=== PATIENT | female | born 1930 | race Caucasian/White ===

== ENCOUNTER → 2016-09-25 | Outpatient (CLI) | payer MEDICARE ==
[~2016-09-25] MED LIST: ASPI-231 PO; BACL20TA PO; GABA300C8 PO; HYDR500T13 PO; METO-159 PO; PANT40TA2 PO; SIMV-13 PO; [UNRECOGNIZED DRUG - CODE] SL
[2016-09-25 11:06] LABS: Basophils # (auto) 0 uL; Basophils % (auto) 0.6 % (0.0-2.0); Eosinophils # (auto) 0.1 uL; Eosinophils % (auto) 2.2 % (0.0-7.0); Hematocrit 41.6 % (36.0-46.0); Hemoglobin 13.6 g/dL (12.2-16.2); Lymphocytes # (auto) 2.5 uL; Lymphocytes % (auto) 41.7 % (10.0-50.0); Mean Corpuscular Hemoglobin 30.2 pg (28.0-32.0); Mean Corpuscular Hgb Conc. 32.6 g/dL (32.0-36.0); Mean Corpuscular Volume 92.7 fL (80.0-100.0); Mean Platelet Volume 7.8 fL (7.4-10.4); Monocytes # (auto) 0.4 uL; Monocytes % (auto) 5.9 % (0.0-12.0); Neutrophils % (auto) 49.6 % (37.0-80.0); Platelet Count (auto) 298 10^3/uL (140-450); Red Cell Distribution Width 15.9 % (11.6-16.0)
[2016-09-25 11:10] LABS: Urine Bilirubin Negative (Negative); Urine Blood Negative /uL (Negative); Urine Color Yellow (Yellow); Urine Glucose Normal (Normal); Urine Ketone Negative (Negative); Urine Nitrite Negative (Negative); Urine RBC 1 /hpf (0 - 4); Urine Urobilinogen Normal (Negative); Urine pH 6.5 (5.0-8.0)
[2016-09-25 11:27] LABS: Albumin 3.7 g/dL (3.4-5.0); BUN/Creatinine Ratio 20.6; Bilirubin, Total 1.2 mg/dL (0.2-1.0); Calcium 9.4 mg/dL (8.5-10.1); Total Protein 7.3 g/dL (6.4-8.2)
== END | disposition home or self-care (01) ==
LOC: LAB 10:31
DX: E08.3219 Diabetes mellitus due to underlying condition with mild nonproliferative diabetic retinopathy with macular edema, unspecified eye (principal)
CPT/HCPCS: 36415; 80053; 80061; 81001; 83036; 84443; 85025; 85652

== ENCOUNTER → 2017-01-03 | Outpatient (CLI) | payer MEDICARE ==
[2017-01-03 08:57] LABS: Basophils # (auto) 0 uL; Basophils % (auto) 0.2 % (0.0-2.0); Eosinophils # (auto) 0.1 uL; Eosinophils % (auto) 1.7 % (0.0-7.0); Hematocrit 42.2 % (36.0-46.0); Lymphocytes % (auto) 30.4 % (10.0-50.0); Mean Corpuscular Hemoglobin 30.5 pg (28.0-32.0); Mean Corpuscular Hgb Conc. 33.1 g/dL (32.0-36.0); Mean Corpuscular Volume 92.1 fL (80.0-100.0); Mean Platelet Volume 7.6 fL (7.4-10.4); Monocytes # (auto) 0.4 uL; Monocytes % (auto) 5.5 % (0.0-12.0); Neutrophils # (auto) 4.1 uL; Neutrophils % (auto) 62.2 % (37.0-80.0); Platelet Count (auto) 266 10^3/uL (140-450); Red Cell Distribution Width 14.3 % (11.6-16.0); White Blood Cell 6.5 10^3/uL (4.4-10.8)
[2017-01-03 09:11] LABS: Urine Bilirubin Negative (Negative); Urine Blood TRACE /uL (Negative); Urine Color Yellow (Yellow); Urine Glucose Normal (Normal); Urine Ketone Negative (Negative); Urine Nitrite Negative (Negative); Urine RBC 2 /hpf (0 - 4); Urine Squamous Epithelial Cell FEW /hpf (<5); Urine Urobilinogen Normal (Negative); Urine pH 6.5 (5.0-8.0)
[2017-01-03 09:26] LABS: Albumin 3.6 g/dL (3.4-5.0); BUN/Creatinine Ratio 22.9; Bilirubin, Total 1.1 mg/dL (0.2-1.0); Calcium 9.7 mg/dL (8.5-10.1); Potassium 4.1 mmol/L (3.5-5.1); Total Protein 7.5 g/dL (6.4-8.2)
== END | disposition home or self-care (01) ==
LOC: LAB 08:30
DX: E08.21 Diabetes mellitus due to underlying condition with diabetic nephropathy (principal); E11.22 Type 2 diabetes mellitus with diabetic chronic kidney disease; Z80.3 Family history of malignant neoplasm of breast; I10 Essential (primary) hypertension; L98.9 Disorder of the skin and subcutaneous tissue, unspecified
CPT/HCPCS: 36415; 80053; 80061; 81001; 82043; 83036; 84443; 85025

== ENCOUNTER → 2018-06-16 | Outpatient (CLI) | payer MEDICARE ==
[~2018-06-16] MED LIST changes: +GABA300C10 PO; -GABA300C8 PO
[2018-06-16 09:16] LABS: Basophils # (auto) 0 uL; Basophils % (auto) 0.3 % (0.0-2.0); Eosinophils # (auto) 0.2 uL; Eosinophils % (auto) 2.9 % (0.0-7.0); Hemoglobin 13.7 g/dL (12.2-16.2); Lymphocytes # (auto) 2.1 uL; Lymphocytes % (auto) 31.7 % (10.0-50.0); Mean Corpuscular Hemoglobin 31.6 pg (28.0-32.0); Mean Corpuscular Hgb Conc. 33.5 g/dL (32.0-36.0); Mean Corpuscular Volume 94.2 fL (80.0-100.0); Monocytes # (auto) 0.5 uL; Neutrophils # (auto) 3.8 uL; Neutrophils % (auto) 58.1 % (37.0-80.0); Platelet Count (auto) 249 10^3/uL (140-450); Red Blood Cells 4.35 10^6/uL (4.0-5.20); Red Cell Distribution Width 14.1 % (11.8-14.3); White Blood Cell 6.5 10^3/uL (4.4-10.8)
[2018-06-16 09:18] LABS: Urine Blood Negative /uL (Negative); Urine Specific Gravity 1.017 (1.001-1.035)
[2018-06-16 10:09] LABS: Albumin 4.3 g/dL (3.4-5.0); BUN/Creatinine Ratio 29.5; Bilirubin, Total 0.8 mg/dL (0.2-1.0); Calcium 9.9 mg/dL (8.5-10.1); Potassium 4.1 mmol/L (3.5-5.1); Total Protein 8.1 g/dL (6.4-8.2)
== END | disposition home or self-care (01) ==
LOC: LAB 08:33
PROVIDERS: ATTEND Nurse Practitioner
DX: E78.5 Hyperlipidemia, unspecified (principal)
CPT/HCPCS: 36415; 80053; 80061; 81003; 84443; 85025

== ENCOUNTER → 2019-06-16 | Outpatient (CLI) | payer MEDICARE, OTHER | END | disposition home or self-care (01) | LOC: XYW 10:47 | PROVIDERS: ATTEND Internal Medicine | DX: I07.1 Rheumatic tricuspid insufficiency (principal); I48.91 Unspecified atrial fibrillation; I11.9 Hypertensive heart disease without heart failure | CPT/HCPCS: 93306 ==

== ENCOUNTER → 2019-12-02 | Outpatient (CLI) | payer MEDICARE, OTHER ==
[2019-12-02 15:33] LABS: Basophils # (auto) 0 10 ^3/uL (0-0.2); Basophils % (auto) 0.3 % (0.0-2.0); Eosinophils # (auto) 0.1 10 ^3/uL (0-0.8); Eosinophils % (auto) 1.2 % (0.0-7.0); Hematocrit 41.6 % (36.0-46.0); Hemoglobin 13.8 g/dL (12.2-16.2); Lymphocytes # (auto) 2.1 10 ^3/uL (0.4-5.4); Lymphocytes % (auto) 38.5 % (10.0-50.0); Mean Corpuscular Hemoglobin 31.8 pg (28.0-32.0); Mean Corpuscular Hgb Conc. 33.3 g/dL (32.0-36.0); Mean Corpuscular Volume 95.6 fL (80.0-100.0); Monocytes # (auto) 0.4 10 ^3/uL (0-1.3); Monocytes % (auto) 7.9 % (0.0-12.0); Neutrophils # (auto) 2.9 10 ^3/uL (1.6-8.6); Neutrophils % (auto) 52.1 % (37.0-80.0); Nucleated Red Blood Cells % 0.1 %; Platelet Count (auto) 279 10^3/uL (140-450); Red Blood Cells 4.35 10^6/uL (4.0-5.20); White Blood Cell 5.5 10^3/uL (4.4-10.8)
[2019-12-02 15:52] LABS: Albumin 3.2 g/dL (3.4-5.0); BUN/Creatinine Ratio 31.5; Calcium 9.3 mg/dL (8.5-10.1); Potassium 4.4 mmol/L (3.5-5.1)
[2019-12-02 15:56] LABS: Bilirubin, Total 0.5 mg/dL (0.2-1.0); Total Protein 7.1 g/dL (6.4-8.2)
[2019-12-02 16:01] LABS: Folate (Folic Acid) > 24.00 ng/mL (5.38-24)
== END | disposition home or self-care (01) ==
LOC: LAB 14:57
PROVIDERS: ATTEND Internal Medicine
DX: I10 Essential (primary) hypertension (principal); I48.91 Unspecified atrial fibrillation; M51.36 Other intervertebral disc degeneration, lumbar region
CPT/HCPCS: 36415; 80053; 80061; 82607; 82746; 83036; 84443; 85025

== ENCOUNTER 2020-02-24 16:00 | Inpatient (IN) | payer MEDICARE, OTHER ==
[~2020-02-24] VITALS: Ht 152.4 cm; Wt 71.6 kg
[2020-02-24 17:16] VITALS: BP 125/56
--- NOTE | 2020-02-24 17:20 | NUR ---
Direct Admit Note JUDY KING admitted to Telemetry/MS unit as a direct admit per MD order. Patient oriented to Inez ahmadi RN, unit, room, bed, and unit policies regarding patient care and visiting hours. Patient now on continuous telemetry monitoring, tele box #[id number] and telemetry reading on arrival to unit is sinus rhythm. Patient weighed by bedscale and encouraged to call if they need something. All questions and concerns addressed, patient verbalized understanding. MD notified of patients arrival and admit orders received.
[2020-02-24 17:21] VITALS: BP 125/56
[2020-02-24] MEDS ORDERED: MORPHINE SULF INJ 2 MG/ML SYRINGE 1ML IV PRN ×3 (17:30→19:15)
[2020-02-24] MEDS ORDERED: NITROGLYCERIN 0.4 MG SL TAB SL PRN ×2 (17:30→19:15)
[2020-02-24 17:38] LABS: Basophils # (auto) 0 10 ^3/uL (0-0.2); Basophils % (auto) 0.3 % (0.0-2.0); Eosinophils # (auto) 0.1 10 ^3/uL (0-0.8); Eosinophils % (auto) 0.9 % (0.0-7.0); Hematocrit 40.8 % (36.0-46.0); Hemoglobin 13.4 g/dL (12.2-16.2); Lymphocytes # (auto) 2.2 10 ^3/uL (0.4-5.4); Lymphocytes % (auto) 26.5 % (10.0-50.0); Mean Corpuscular Volume 97.1 fL (80.0-100.0); Monocytes # (auto) 0.6 10 ^3/uL (0-1.3); Monocytes % (auto) 6.7 % (0.0-12.0); Neutrophils # (auto) 5.4 10 ^3/uL (1.6-8.6); Neutrophils % (auto) 65.6 % (37.0-80.0); Nucleated Red Blood Cells % 0.1 %; Platelet Count (auto) 213 10^3/uL (140-450); Red Cell Distribution Width 14.9 % (11.8-14.3); White Blood Cell 8.2 10^3/uL (4.4-10.8)
[2020-02-24] MEDS ORDERED: CHOL500040 PO (17:51)
[2020-02-24] MEDS ORDERED: GABA300C11 PO (17:51)
[2020-02-24] MEDS ORDERED: CYAN1TAB14 PO (17:51)
[2020-02-24] MEDS ORDERED: MAGN250T3 PO (17:51)
[2020-02-24] MEDS ORDERED: FLUT50SP (17:51)
[2020-02-24] MEDS ORDERED: ZINC50TA2 PO (17:51)
[2020-02-24] MEDS ORDERED: BIMA0.01 EACHEYE (17:51)
[2020-02-24] MEDS ORDERED: MULT-927 PO (17:51)
[2020-02-24] MEDS ORDERED: [UNRECOGNIZED DRUG - CODE] PO (17:51)
[2020-02-24] MEDS ORDERED: SOTA80TA PO (17:51)
[2020-02-24] MEDS ORDERED: OMEP20TA PO (17:51)
[2020-02-24] MEDS ORDERED: POTA99TA3 PO (17:51)
[2020-02-24 17:55] LABS: Albumin 3.2 g/dL (3.4-5.0); Calcium 8.8 mg/dL (8.5-10.1); Magnesium 2.1 mg/dL (1.6-2.6); Potassium 4.1 mmol/L (3.5-5.1)
[2020-02-24] MEDS: HYDROcodone-ACET 10/325MG TAB PO PRN (17:55)
[2020-02-24 17:59] LABS: BUN/Creatinine Ratio 32.5; Bilirubin, Total 0.5 mg/dL (0.2-1.0); Total Protein 6.7 g/dL (6.4-8.2)
[2020-02-24] MEDS ORDERED: ONDANSETRON HCL 4 MG/2 ML VIAL IV PRN (19:15)
[2020-02-24] MEDS ORDERED: LORazepam 0.5 MG TAB PO PRN (19:15)
[2020-02-24] MEDS ORDERED: ALUM & MAG HYDROX-SIMETH LIQ(MAALOX) 30 ML PO PRN (19:15)
[2020-02-24] MEDS ORDERED: HYDROcodone-ACET 5/325MG TAB PO PRN (19:15)
[2020-02-24] MEDS ORDERED: DOCUSATE SOD 100 MG CAP PO PRN (19:15)
--- NOTE | 2020-02-24 19:30 | NUR ---
OPENING SHIFT NOTE PT IS RESTING IN BED WITH EYES OPEN AND RESP RATE IS EVEN AND UNLABORED. NO S/S OF ANY DISTRESS NOTED AT THIS TIME. POC DISCUSSED WITH PT AND PT VERBALIZES UNDERSTANDING. BED IS LOW, WHEELS ARE LOCKED AND CALL LIGHT IS WITH IN REACH.
[2020-02-24 22:00] VITALS: BP 145/74
[2020-02-24] MEDS: BIMATOPROST 0.01% EACHEYE SCH (22:00)
[2020-02-24 23:14] LABS: CRP High Sensitivity 0.18 mg/dL (< 0.3)
[2020-02-24] MEDS: SODIUM CHLORIDE 0.9% 1,000 ML IV SCH (23:57)
[2020-02-24] MEDS: metroNIDAZOLE 500MG/100ML 100 ML IV SCH (23:58)
[2020-02-24] MEDS: ATORVASTATIN 20 MG TAB PO SCH (23:59)
[2020-02-24] MEDS: MAGNESIUM OXIDE 400 MG TAB PO SCH (23:59)
[2020-02-25 05:00] VITALS: BP 146/84
[2020-02-25] MEDS ORDERED: DEXTROSE (50%) 50ML SYRG IV PRN (05:30)
[2020-02-25 05:46] LABS: Alcohol, Urine < 3.0 mg/dL (0-10); Amphetamine Screen, Urine NEGATIVE (NEGATIVE); Barbiturate Scree,Urine NEGATIVE (NEGATIVE); Benzodiazephine Screen, Urine NEGATIVE (NEGATIVE); Cannabinoid Screen, Urine NEGATIVE (NEGATIVE); Cocaine Screen, Urine NEGATIVE (NEGATIVE); Opiate Scree,Urine POSITIVE (NEGATIVE); Phencyclidine Screen, Urine NEGATIVE (NEGATIVE)
[2020-02-25 06:24] LABS: Potassium 4.2 mmol/L (3.5-5.1)
[2020-02-25 06:39] LABS: Albumin 2.9 g/dL (3.4-5.0); BUN/Creatinine Ratio 24.4; Bilirubin, Total 0.9 mg/dL (0.2-1.0); Calcium 8.5 mg/dL (8.5-10.1); Magnesium 2.1 mg/dL (1.6-2.6); Phosphorus 3.6 mg/dL (2.5-4.90); Total Protein 6.1 g/dL (6.4-8.2)
[2020-02-25] MEDS: metroNIDAZOLE 500MG/100ML 100 ML IV SCH ×3 (06:41→23:35)
[2020-02-25] MEDS: FUROSEMIDE 20 MG/2 ML VIAL IV SCH ×2 (06:42→18:54)
[2020-02-25] MEDS: InsuLIN REG 1unit/0.01ml Soln (100units/ml) SC SCH ×4 (06:43→22:00)
[2020-02-25] MEDS: ACCU-CHEK COMFORT CURVE STRIP VI SCH ×4 (06:44→23:37)
[2020-02-25 06:56] LABS: Basophils # (auto) 0 10 ^3/uL (0-0.2); Basophils % (auto) 0.4 % (0.0-2.0); Eosinophils # (auto) 0.1 10 ^3/uL (0-0.8); Eosinophils % (auto) 2.2 % (0.0-7.0); Hematocrit 39.1 % (36.0-46.0); Hemoglobin 13.1 g/dL (12.2-16.2); Lymphocytes # (auto) 2.5 10 ^3/uL (0.4-5.4); Lymphocytes % (auto) 40.7 % (10.0-50.0); Mean Corpuscular Hemoglobin 32.1 pg (28.0-32.0); Mean Corpuscular Hgb Conc. 33.5 g/dL (32.0-36.0); Mean Corpuscular Volume 95.8 fL (80.0-100.0); Monocytes # (auto) 0.5 10 ^3/uL (0-1.3); Monocytes % (auto) 8.1 % (0.0-12.0); Neutrophils % (auto) 48.6 % (37.0-80.0); Nucleated Red Blood Cells % 0.2 %; Platelet Count (auto) 215 10^3/uL (140-450); Red Blood Cells 4.08 10^6/uL (4.0-5.20); Red Cell Distribution Width 14.9 % (11.8-14.3); White Blood Cell 6.1 10^3/uL (4.4-10.8)
--- NOTE | 2020-02-25 07:00 | NUR ---
Opening Shift Note Received report on the patient. Awake lying in bed. Patient shows no signs of distress at this time. Discussed plan of care with the patient. Bed in lowest position, side rails up x2, and the call light is within reach.
[2020-02-25] MEDS: SODIUM CHLORIDE 0.9% 1,000 ML IV SCH ×2 (08:05→23:35)
[2020-02-25 09:00] VITALS: BP 142/78
[2020-02-25] MEDS: FLORASTOR (S. BOULARDII) 250 MG CAP PO SCH (09:51)
[2020-02-25] MEDS: MAGNESIUM OXIDE 400 MG TAB PO SCH ×2 (09:52→23:36)
[2020-02-25] MEDS: ENOXAPARIN SOD 40 MG/0.4 ML SYRINGE SC SCH (09:52)
[2020-02-25] MEDS: MULTIPLE VITAMINS W/ MINERALS TAB PO SCH (09:52)
[2020-02-25] MEDS: METOPROLOL SUCCINATE XL 50 MG TAB PO SCH (09:53)
[2020-02-25] MEDS: CHOLECALCIFEROL (VITD3) 1,000IU=25mCg TAB PO SCH (09:53)
[2020-02-25] MEDS: HYDROcodone-ACET 10/325MG TAB PO PRN (09:54)
[2020-02-25] MEDS ORDERED: FAMOTIDINE (10MG/ML) 2ML VL IV SCH (10:00)
[2020-02-25] MEDS ORDERED: ASPirin-EC 81 mg tab PO SCH (10:00)
[2020-02-25] MEDS ORDERED: IOHEXOL 300 MG/ML 100ML BOTTLE IJ ONE (12:33)
[2020-02-25 13:00] VITALS: BP 144/77
--- NOTE | 2020-02-25 14:23 | NUR ---
assessment re: consult for safe dc plan Patient is a 89 year old female who is sleeping. Per patients son Fransico patient is alert and oriented and needed assistance at home prior to admission. Fransico informed me patient lives with her granddaughter Melissa Mcdaniel. Patient has a fww and a cane for home use. Patient came to ER for persistent diarrhea and was admitted. Per Fransico patient has good family support. I informed Fransico patient has a ss consult for SNF on Friday. Per Fransico patient makes her own decisions. Rolanda PARRA or I will follow up with patient on Friday after her procedures. Fransico verbalized understanding. Addendum: 02/25/20 at 1428 by Shilpa TRAN Amended: Links added.
[2020-02-25 14:52] LABS: Urine Bacteria FEW /hpf (None Seen); Urine Blood Negative /uL (Negative); Urine Specific Gravity 1.008 (1.001-1.035); Urine WBC 5 /hpf (0 - 5)
[2020-02-25 17:09] VITALS: BP 148/76
--- NOTE | 2020-02-25 19:30 | NUR ---
Opening Shift note Pt is resting in bed with eyes open and resp rate is even and unlabored. No s/s of any distress noted. POC discussed with pt and pt verbalizes understanding. Bed is low, wheels are locked ,and call light is with in reach.
[2020-02-25 21:00] VITALS: BP 155/76
[2020-02-25] MEDS: BIMATOPROST 0.01% EACHEYE SCH (22:00)
[2020-02-25] MEDS: ATORVASTATIN 20 MG TAB PO SCH (23:36)
[2020-02-25] MEDS: GABAPENTIN 300 MG CAP PO SCH ×2 (23:36)
[2020-02-26 04:30] VITALS: BP 134/73
[2020-02-26] MEDS: FUROSEMIDE 20 MG/2 ML VIAL IV SCH ×2 (06:16→17:42)
[2020-02-26] MEDS: metroNIDAZOLE 500MG/100ML 100 ML IV SCH ×3 (06:16→23:08)
[2020-02-26 06:40] LABS: INR 1.02 (0.9-1.15)
[2020-02-26] MEDS: InsuLIN REG 1unit/0.01ml Soln (100units/ml) SC SCH ×4 (07:00→22:00)
[2020-02-26] MEDS: ACCU-CHEK COMFORT CURVE STRIP VI SCH ×4 (07:06→22:00)
[2020-02-26 09:00] VITALS: BP 132/69
[2020-02-26] MEDS: MAGNESIUM OXIDE 400 MG TAB PO SCH ×2 (09:11→23:08)
[2020-02-26] MEDS: CHOLECALCIFEROL (VITD3) 1,000IU=25mCg TAB PO SCH (09:11)
[2020-02-26] MEDS: METOPROLOL SUCCINATE XL 50 MG TAB PO SCH (09:12)
[2020-02-26] MEDS: ENOXAPARIN SOD 40 MG/0.4 ML SYRINGE SC SCH (09:12)
[2020-02-26] MEDS: MULTIPLE VITAMINS W/ MINERALS TAB PO SCH (09:15)
[2020-02-26] MEDS: HYDROcodone-ACET 10/325MG TAB PO PRN (09:15)
[2020-02-26] MEDS: FLORASTOR (S. BOULARDII) 250 MG CAP PO SCH (09:15)
[2020-02-26] MEDS ORDERED: FAMOTIDINE (10MG/ML) 2ML VL IV SCH (10:00)
[2020-02-26] MEDS: SODIUM CHLORIDE 0.9% 1,000 ML IV SCH (12:00)
[2020-02-26 13:00] VITALS: BP 126/64
--- NOTE | 2020-02-26 16:58 | NUR ---
Dr. Cortez called to confirm he will take care of the pt, Dr. Evans made aware, he ordered to transfer service to Dr. Cortez.
[2020-02-26 17:00] VITALS: BP 128/57
[2020-02-26] MEDS: Glucerna Carbsteady SHAKE Vanilla 8oz PO SCH (17:57)
--- NOTE | 2020-02-26 19:40 | NUR ---
Opening Shift Note Pt is resting in bed with eyes open and resp rate is even and unlabored. No s/s of any distress noted at this time. POC discussed wit pt and pt verbalizes understanding. Bed is low, wheels are locked, and call light is with in reach.
[2020-02-26 22:00] VITALS: BP 122/70
[2020-02-26] MEDS: BIMATOPROST 0.01% EACHEYE SCH (22:00)
[2020-02-26] MEDS: GABAPENTIN 300 MG CAP PO SCH (23:08)
[2020-02-26] MEDS: ATORVASTATIN 20 MG TAB PO SCH (23:08)
[2020-02-26] MEDS: PANTOPRAZOLE 40 MG TAB PO SCH (23:09)
[2020-02-27] MEDS: SODIUM CHLORIDE 0.9% 1,000 ML IV SCH ×2 (00:05→13:40)
[2020-02-27 05:00] VITALS: BP 134/70
[2020-02-27 05:47] LABS: Basophils # (auto) 0 10 ^3/uL (0-0.2); Basophils % (auto) 0.4 % (0.0-2.0); Eosinophils # (auto) 0.2 10 ^3/uL (0-0.8); Eosinophils % (auto) 2.6 % (0.0-7.0); Hematocrit 39.9 % (36.0-46.0); Hemoglobin 13.2 g/dL (12.2-16.2); Lymphocytes # (auto) 2.1 10 ^3/uL (0.4-5.4); Lymphocytes % (auto) 34.4 % (10.0-50.0); Mean Corpuscular Hemoglobin 31.8 pg (28.0-32.0); Mean Corpuscular Volume 96.3 fL (80.0-100.0); Monocytes # (auto) 0.5 10 ^3/uL (0-1.3); Monocytes % (auto) 7.7 % (0.0-12.0); Neutrophils # (auto) 3.4 10 ^3/uL (1.6-8.6); Neutrophils % (auto) 54.9 % (37.0-80.0); Nucleated Red Blood Cells % 0.1 %; Platelet Count (auto) 213 10^3/uL (140-450); Red Blood Cells 4.14 10^6/uL (4.0-5.20); Red Cell Distribution Width 14.8 % (11.8-14.3); White Blood Cell 6.2 10^3/uL (4.4-10.8)
[2020-02-27 06:17] LABS: Potassium 3.8 mmol/L (3.5-5.1)
[2020-02-27 06:22] LABS: BUN/Creatinine Ratio 29.5; Calcium 8.6 mg/dL (8.5-10.1)
[2020-02-27] MEDS: metroNIDAZOLE 500MG/100ML 100 ML IV SCH ×3 (06:38→22:22)
[2020-02-27] MEDS: FUROSEMIDE 20 MG/2 ML VIAL IV SCH ×2 (06:40→17:47)
[2020-02-27] MEDS: InsuLIN REG 1unit/0.01ml Soln (100units/ml) SC SCH ×4 (06:41→22:00)
[2020-02-27] MEDS: ACCU-CHEK COMFORT CURVE STRIP VI SCH ×4 (06:41→22:00)
[2020-02-27] MEDS: Glucerna Carbsteady SHAKE Vanilla 8oz PO SCH ×3 (08:14→17:48)
[2020-02-27 08:59] VITALS: BP 126/69
[2020-02-27] MEDS: FLORASTOR (S. BOULARDII) 250 MG CAP PO SCH (09:03)
[2020-02-27] MEDS: CHOLECALCIFEROL (VITD3) 1,000IU=25mCg TAB PO SCH (09:03)
[2020-02-27] MEDS: MAGNESIUM OXIDE 400 MG TAB PO SCH ×2 (09:03→22:21)
[2020-02-27] MEDS: MULTIPLE VITAMINS W/ MINERALS TAB PO SCH (09:04)
[2020-02-27] MEDS: ENOXAPARIN SOD 40 MG/0.4 ML SYRINGE SC SCH (09:04)
[2020-02-27] MEDS: PANTOPRAZOLE 40 MG TAB PO SCH ×2 (09:04→22:21)
[2020-02-27] MEDS: METOPROLOL SUCCINATE XL 50 MG TAB PO SCH (09:04)
[2020-02-27] MEDS ORDERED: GOLYTELY 4L KIT PO ONE (12:00)
[2020-02-27 13:00] VITALS: BP 143/73
--- NOTE | 2020-02-27 16:27 | NUR ---
Stool sample sent to the lab.
[2020-02-27 17:34] VITALS: BP 130/72
--- NOTE | 2020-02-27 19:00 | NUR ---
Opening Shift Note Assumed care of patient, awake and alert. No S/S of distress/SOB or pain. Instructed on POC and to call for assist PRN, will continue to monitor for changes Q1hr and PRN.
[2020-02-27] MEDS: BIMATOPROST 0.01% EACHEYE SCH (22:00)
[2020-02-27] MEDS: GABAPENTIN 300 MG CAP PO SCH (22:22)
[2020-02-27] MEDS: ATORVASTATIN 20 MG TAB PO SCH (22:22)
[2020-02-28] MEDS: SODIUM CHLORIDE 0.9% 1,000 ML IV SCH ×2 (02:45→16:59)
[2020-02-28] MEDS ORDERED: GOLYTELY 4L KIT PO ONE (05:00)
[2020-02-28] MEDS: metroNIDAZOLE 500MG/100ML 100 ML IV SCH ×3 (05:46→21:51)
[2020-02-28] MEDS: FUROSEMIDE 20 MG/2 ML VIAL IV SCH ×2 (05:47→18:07)
[2020-02-28 05:59] LABS: Basophils # (auto) 0 10 ^3/uL (0-0.2); Basophils % (auto) 0.3 % (0.0-2.0); Eosinophils # (auto) 0.2 10 ^3/uL (0-0.8); Eosinophils % (auto) 3.2 % (0.0-7.0); Hematocrit 40.5 % (36.0-46.0); Hemoglobin 13.5 g/dL (12.2-16.2); Lymphocytes # (auto) 1.7 10 ^3/uL (0.4-5.4); Lymphocytes % (auto) 32.2 % (10.0-50.0); Mean Corpuscular Hemoglobin 32.3 pg (28.0-32.0); Mean Corpuscular Hgb Conc. 33.5 g/dL (32.0-36.0); Mean Corpuscular Volume 96.5 fL (80.0-100.0); Monocytes # (auto) 0.5 10 ^3/uL (0-1.3); Monocytes % (auto) 10.1 % (0.0-12.0); Neutrophils # (auto) 2.9 10 ^3/uL (1.6-8.6); Neutrophils % (auto) 54.2 % (37.0-80.0); Nucleated Red Blood Cells % 0.1 %; Platelet Count (auto) 208 10^3/uL (140-450); Red Blood Cells 4.19 10^6/uL (4.0-5.20); Red Cell Distribution Width 14.5 % (11.8-14.3); White Blood Cell 5.3 10^3/uL (4.4-10.8)
[2020-02-28 06:31] LABS: Potassium 3.2 mmol/L (3.5-5.1)
[2020-02-28 06:47] LABS: BUN/Creatinine Ratio 16.7; Calcium 8.4 mg/dL (8.5-10.1)
[2020-02-28] MEDS: ACCU-CHEK COMFORT CURVE STRIP VI SCH ×4 (06:51→21:53)
[2020-02-28] MEDS: InsuLIN REG 1unit/0.01ml Soln (100units/ml) SC SCH ×4 (06:51→21:52)
--- NOTE | 2020-02-28 07:30 | NUR ---
Called PreOp Spoke with PreOp RN, Marysol, regarding patient's Golytely, per Marysol, stop Golytely and maintain NPO status, tabatha TOVAR.
--- NOTE | 2020-02-28 07:30 | NUR ---
Opening Note Assumed patient care from NOC RN. Patient currently sitting on bedside commode, call light within reach, encouraged to call when she wants to get back in bed. Will continue to monitor.
--- NOTE | 2020-02-28 07:45 | NUR ---
Patient Back to Bed Patient assisted back to bed, patient currently complains of being cold. Patient given extra blankets and was assisted with putting on her beanie.
[2020-02-28] MEDS: Glucerna Carbsteady SHAKE Vanilla 8oz PO SCH ×3 (08:00→18:00)
[2020-02-28 09:00] VITALS: BP 127/88
[2020-02-28] MEDS ORDERED: SODIUM CHLORIDE LOCK 10 ML ONE (09:12)
[2020-02-28] MEDS ORDERED: LIDOCAINE VISCOUS 2% 15ML UD ONE (09:12)
[2020-02-28] MEDS ORDERED: diphenhdrAMINE HCL 50 MG/1 ML VL ONE (09:13)
--- NOTE | 2020-02-28 09:27 | NUR ---
Received Call from Received return call from Dr. Orellana, per MD, patient to have 2 tap water enema for colonoscopy at noon.
--- NOTE | 2020-02-28 09:55 | NUR ---
Enema Administered first tap water enema, patient tolerated well, no distress at this time. Patient respirations even and unlabored, will continue to monitor.
[2020-02-28] MEDS: MULTIPLE VITAMINS W/ MINERALS TAB PO SCH (10:00)
[2020-02-28] MEDS: PANTOPRAZOLE 40 MG TAB PO SCH ×2 (10:00→21:54)
[2020-02-28] MEDS: FLORASTOR (S. BOULARDII) 250 MG CAP PO SCH (10:00)
[2020-02-28] MEDS: CHOLECALCIFEROL (VITD3) 1,000IU=25mCg TAB PO SCH (10:00)
[2020-02-28] MEDS: METOPROLOL SUCCINATE XL 50 MG TAB PO SCH (10:00)
[2020-02-28] MEDS: ENOXAPARIN SOD 40 MG/0.4 ML SYRINGE SC SCH (10:00)
[2020-02-28] MEDS: MAGNESIUM OXIDE 400 MG TAB PO SCH ×2 (10:00→21:53)
--- NOTE | 2020-02-28 11:00 | NUR ---
Enema #2 Second enema given. Patient tolerated well, no signs of distress at this time, respirations even and unlabored, will continue to monitor.
--- NOTE | 2020-02-28 11:15 | NUR ---
Bowel Movement Patient used bedside commode, stool is liquid and clear, yellow. Bedding/linens change done, preventative barrier cream applied to buttocks.
--- NOTE | 2020-02-28 12:15 | NUR ---
Patient OFF Unit Patient off unit for procedure.
[2020-02-28] MEDS: fentaNYL CITRATE 100 MCG/2 ML VL ONE ×3 (12:37→12:48)
[2020-02-28] MEDS: MIDAZOLAM HCL 5 MG/ML-1ML VIAL ONE ×3 (12:37→12:48)
[2020-02-28 13:00] VITALS: BP 107/60
--- NOTE | 2020-02-28 13:30 | NUR ---
Ambulated Patient ambulated in hallway with physical therapist using walker.
[2020-02-28] MEDS ORDERED: POTASSIUM EFFERVESENT TAB 25 MEQ PO ONE (14:00)
--- NOTE | 2020-02-28 14:00 | NUR ---
at Bedside Dr. Evans at bedside discussing plan of care with patient. Per MD, patient to ambulate with PT today.
--- NOTE | 2020-02-28 14:33 | NUR ---
Nutrition Assessment Notes Please refer to link for full assessment notes. Est Energy needs: 9740-2751 kcals (20-23 kcal/kgBW) Est Protein needs: 80-84 gms/day (1.0-1.1 gm/kgBW) Will continue to monitor and reassess prn. Addendum: 02/28/20 at [address] Amended: Links added.
[2020-02-28 17:01] VITALS: BP 126/67
[2020-02-28] MEDS: CEPHALEXIN 250 MG CAP PO SCH ×2 (18:06→23:59)
--- NOTE | 2020-02-28 18:07 | NUR ---
Patient Refused Med Patient refused Insulin at this time. Patient states she currently does not feel hungry as she had a late lunch. Patient educated on insulin and meals, patient verbalized understanding; blood glucose currently 133.
--- NOTE | 2020-02-28 19:17 | NUR ---
Closing Note Report given to NOC RN, Monisha. Patient currently resting with eyes closed, respirations even and unlabored, AOx4, no signs of distress at this time.
--- NOTE | 2020-02-28 19:30 | NUR ---
Opening Shift Note Assumed care of patient, awake and alert. No S/S of distress/SOB or pain. bed in lowest locked position, safety precautions in place, and call light within reach. Instructed on POC and to call for assist PRN, will continue to monitor for changes Q1hr and PRN. Signed: 02/29/20 at 215 by HAMILTON DIAZ SN <Co-Signature Required> Co-Signed: 02/29/20 at 215 by Monisha Mallory RN RN
[2020-02-28 21:44] VITALS: BP 102/54
[2020-02-28] MEDS: ATORVASTATIN 20 MG TAB PO SCH (21:53)
[2020-02-28] MEDS: GABAPENTIN 300 MG CAP PO SCH (21:54)
[2020-02-28] MEDS: BIMATOPROST 0.01% EACHEYE SCH (21:55)
[2020-02-29 05:00] VITALS: BP 141/77
[2020-02-29] MEDS: InsuLIN REG 1unit/0.01ml Soln (100units/ml) SC SCH ×4 (05:48→22:03)
[2020-02-29] MEDS: ACCU-CHEK COMFORT CURVE STRIP VI SCH ×4 (05:49→22:03)
[2020-02-29] MEDS: CEPHALEXIN 250 MG CAP PO SCH ×3 (05:49→18:02)
[2020-02-29] MEDS: FUROSEMIDE 20 MG/2 ML VIAL IV SCH ×2 (05:49→18:02)
[2020-02-29] MEDS: SODIUM CHLORIDE 0.9% 1,000 ML IV SCH ×2 (05:50→18:02)
[2020-02-29] MEDS: metroNIDAZOLE 500MG/100ML 100 ML IV SCH ×3 (05:50→22:03)
[2020-02-29] MEDS: HYDROcodone-ACET 10/325MG TAB PO PRN (05:57)
[2020-02-29 06:39] LABS: Basophils # (auto) 0 10 ^3/uL (0-0.2); Basophils % (auto) 0.2 % (0.0-2.0); Eosinophils # (auto) 0.2 10 ^3/uL (0-0.8); Eosinophils % (auto) 3.1 % (0.0-7.0); Hematocrit 38.3 % (36.0-46.0); Hemoglobin 12.7 g/dL (12.2-16.2); Lymphocytes # (auto) 1.6 10 ^3/uL (0.4-5.4); Lymphocytes % (auto) 30.2 % (10.0-50.0); Mean Corpuscular Hemoglobin 32.1 pg (28.0-32.0); Mean Corpuscular Hgb Conc. 33.3 g/dL (32.0-36.0); Mean Corpuscular Volume 96.4 fL (80.0-100.0); Monocytes # (auto) 0.4 10 ^3/uL (0-1.3); Monocytes % (auto) 8.3 % (0.0-12.0); Neutrophils % (auto) 58.2 % (37.0-80.0); Nucleated Red Blood Cells % 0.1 %; Platelet Count (auto) 199 10^3/uL (140-450); Red Blood Cells 3.98 10^6/uL (4.0-5.20); Red Cell Distribution Width 14.7 % (11.8-14.3); White Blood Cell 5.2 10^3/uL (4.4-10.8)
[2020-02-29 06:45] LABS: BUN/Creatinine Ratio 14.3; Calcium 8.2 mg/dL (8.5-10.1); Potassium 3.7 mmol/L (3.5-5.1)
--- NOTE | 2020-02-29 07:30 | NUR ---
Opening Note Assumed patient care from [facility] RN, Monisha. Patient currently resting in bed with eyes closed, respirations are even and unlabored, will continue to monitor.
--- NOTE | 2020-02-29 08:27 | NUR ---
MARC at Bedside INGE Orantes, at bedside, discussing discharge plan with patient. Patient refusing transfer to SNF, states she wants to return home with granddaughter.
--- NOTE | 2020-02-29 08:34 | NUR ---
D/ C Planning Per SS consult for SNF placement. MICHAEL Fong advised me patient does not want to be placed at a skill nursing facility and wants to return home. Spoke to patient regarding discharge plan. Per patient she would like to return home with family. Informed MICHAEL Fong to inform provider.
[2020-02-29 08:40] VITALS: BP 121/63
[2020-02-29] MEDS: FLORASTOR (S. BOULARDII) 250 MG CAP PO SCH (10:00)
[2020-02-29] MEDS: ENOXAPARIN SOD 40 MG/0.4 ML SYRINGE SC SCH (10:00)
[2020-02-29] MEDS ORDERED: IOHEXOL 300 MG/ML 100ML BOTTLE IJ ONE (11:41)
--- NOTE | 2020-02-29 11:43 | NUR ---
Patient Off Unit Patient of Unit for CT
[2020-02-29] MEDS: MULTIPLE VITAMINS W/ MINERALS TAB PO SCH (12:44)
[2020-02-29] MEDS: Glucerna Carbsteady SHAKE Vanilla 8oz PO SCH ×3 (12:44→18:02)
[2020-02-29] MEDS: PANTOPRAZOLE 40 MG TAB PO SCH ×2 (12:45→22:04)
[2020-02-29] MEDS: MAGNESIUM OXIDE 400 MG TAB PO SCH ×2 (12:45→22:05)
[2020-02-29] MEDS: METOPROLOL SUCCINATE XL 50 MG TAB PO SCH (12:46)
[2020-02-29] MEDS: CHOLECALCIFEROL (VITD3) 1,000IU=25mCg TAB PO SCH (12:46)
[2020-02-29 13:00] VITALS: BP 123/69
[2020-02-29] MEDS: IBUPROFEN 400 MG TAB PO PRN ×2 (13:00→22:04)
--- NOTE | 2020-02-29 13:28 | NUR ---
Called MD Spoke with Dr. Evans to clarify orders. Per MD, patient to remain on Keflix and Flagyl at this time. Will continue to monitor.
--- NOTE | 2020-02-29 13:28 | NUR ---
Family Spoke with Son, Fransico, password confirmed. Per son, patient has a "low threshold for pain" and it is not unusual for her to cry and shout when in pain. Family member assured that patient had been given medication for pain and was given warm compress for aching joints, and that staff will continue to monitor pain and take pain management measures.
--- NOTE | 2020-02-29 13:45 | NUR ---
Patient Rounds Patient currently resting in bed, eyes closed, respirations even and unlabored, safety precautions in place. Patient given warm packs for hands and knee, states she is having 10/10 joint pain and she normally takes ibuprofen at home for arthritis pain. Medication administered (see EMAR). No signs of distress at this time, will continue to monitor.
--- NOTE | 2020-02-29 14:28 | NUR ---
Pt on hold pending results of procedure. Addendum: 02/29/20 at 1430 by Simeon Allison PTA Amended: Links added.
--- NOTE | 2020-02-29 14:44 | NUR ---
Switch Operator at Beside US tech at bedside for Venous Doppler study.
[2020-02-29 16:34] VITALS: BP 113/64
--- NOTE | 2020-02-29 17:43 | NUR ---
Patient Rounds Patient currently sitting up in bed. Patient denies pain at this time. Safety precautions in place, will continue to monitor.
--- NOTE | 2020-02-29 18:36 | NUR ---
New IV New IV started on right wrist, 20 gauge. Blood return noted, flushes easily without sign of infiltration. Patient tolerated well with no signs of distress at this time, respirations even and unlabored, will continue to monitor.
--- NOTE | 2020-02-29 19:30 | NUR ---
Opening Shift Note Assumed care of patient, awake and alert. No S/S of distress/SOB or pain. Insructed on POC and to callfor assist PRN, will continue to monitor for changes Q1hr and PRN. Fall and safety precautions in place. Call light within reach.
[2020-02-29 22:00] VITALS: BP 91/61
[2020-02-29] MEDS: BIMATOPROST 0.01% EACHEYE SCH (22:00)
[2020-02-29] MEDS: GABAPENTIN 300 MG CAP PO SCH (22:04)
[2020-02-29] MEDS: ATORVASTATIN 20 MG TAB PO SCH (22:04)
[2020-03-01] MEDS: CEPHALEXIN 250 MG CAP PO SCH ×3 (01:02→12:02)
[2020-03-01 05:00] VITALS: BP 115/61
[2020-03-01] MEDS: FUROSEMIDE 20 MG/2 ML VIAL IV SCH (05:21)
[2020-03-01] MEDS: metroNIDAZOLE 500MG/100ML 100 ML IV SCH (05:22)
[2020-03-01] MEDS: InsuLIN REG 1unit/0.01ml Soln (100units/ml) SC SCH ×2 (05:23→12:02)
[2020-03-01] MEDS: ACCU-CHEK COMFORT CURVE STRIP VI SCH ×2 (05:24→11:41)
[2020-03-01 07:00] VITALS: BP 109/58
--- NOTE | 2020-03-01 07:00 | NUR ---
AFIB Received call from tele station stating patient had converted from SR to AFIB. Vitals taken; BP 109/58. EKG taken; showing "Atrial Fibrillation, HR 97." EKG printed and placed in chart, patient denies chest pain or SOB. Patient has past medical history of AFIB. Endorsed to day shift MICHAEL Fong to inform MD and continue care.
--- NOTE | 2020-03-01 07:30 | NUR ---
Opening Note Assumed patient care from [facility] RN, Monisha. Patient currently resting in bed, eyes closed, respirations are even and unlabored, no signs of distress at this time. Patient is easy to arouse and is AOx4. Safety precautions in place. Will continue to monitor.
[2020-03-01 08:07] LABS: Basophils # (auto) 0 10 ^3/uL (0-0.2); Basophils % (auto) 0.3 % (0.0-2.0); Eosinophils # (auto) 0.2 10 ^3/uL (0-0.8); Hematocrit 42.2 % (36.0-46.0); Hemoglobin 14.1 g/dL (12.2-16.2); Lymphocytes # (auto) 2.2 10 ^3/uL (0.4-5.4); Mean Corpuscular Hemoglobin 32.2 pg (28.0-32.0); Mean Corpuscular Hgb Conc. 33.4 g/dL (32.0-36.0); Mean Corpuscular Volume 96.2 fL (80.0-100.0); Monocytes # (auto) 0.5 10 ^3/uL (0-1.3); Monocytes % (auto) 7.6 % (0.0-12.0); Neutrophils # (auto) 3.9 10 ^3/uL (1.6-8.6); Neutrophils % (auto) 57.1 % (37.0-80.0); Nucleated Red Blood Cells % 0.2 %; Platelet Count (auto) 231 10^3/uL (140-450); Red Blood Cells 4.38 10^6/uL (4.0-5.20); Red Cell Distribution Width 14.6 % (11.8-14.3); White Blood Cell 6.8 10^3/uL (4.4-10.8)
[2020-03-01 08:27] LABS: BUN/Creatinine Ratio 18.8; Calcium 9.5 mg/dL (8.5-10.1); Potassium 3.9 mmol/L (3.5-5.1)
[2020-03-01 08:43] VITALS: BP 103/54
[2020-03-01] MEDS: Glucerna Carbsteady SHAKE Vanilla 8oz PO SCH ×2 (08:59→11:42)
[2020-03-01] MEDS: SODIUM CHLORIDE 0.9% 1,000 ML IV SCH (08:59)
[2020-03-01] MEDS: MAGNESIUM OXIDE 400 MG TAB PO SCH (09:43)
[2020-03-01] MEDS: MULTIPLE VITAMINS W/ MINERALS TAB PO SCH (09:43)
[2020-03-01] MEDS: FLORASTOR (S. BOULARDII) 250 MG CAP PO SCH (09:43)
[2020-03-01] MEDS: PANTOPRAZOLE 40 MG TAB PO SCH (09:43)
[2020-03-01] MEDS: METOPROLOL SUCCINATE XL 50 MG TAB PO SCH (09:44)
[2020-03-01] MEDS: ENOXAPARIN SOD 40 MG/0.4 ML SYRINGE SC SCH (09:44)
[2020-03-01] MEDS: CHOLECALCIFEROL (VITD3) 1,000IU=25mCg TAB PO SCH (09:45)
--- NOTE | 2020-03-01 10:00 | NUR ---
Patient Rounds Patient currently sitting up in bed. Respirations even and unlabored, denies SOB, dizziness and chest pain at this time. Safety precautions in place, will continue to monitor.
--- NOTE | 2020-03-01 12:15 | NUR ---
at Station Dr. Evans at station. aware of A Fib per MD, no intervention required at this time.
--- NOTE | 2020-03-01 12:31 | NUR ---
at Bedside Dr. Evans at bedside discussing plan of care with patient. Per MD, patient okay to discharge to home today, patient to follow up with primary doctor regarding anticoagulation therapy for AFib. Patient to follow up with Dr. Cardenas and Dr. Orellana outpatient. Patient agreeable to plan of care.
[2020-03-01 12:42] VITALS: BP 102/49
[2020-03-01 13:57] VITALS: BP 102/49
--- NOTE | 2020-03-01 14:19 | NUR ---
Family Called Spoke with son, Fransico, password confirmed. Son update on discharge plan and notified of patient's appointments and prescriptions. Informed that patient will receive a discharge packet with pertinent information included. Son verbalized understanding.
--- NOTE | 2020-03-01 15:00 | NUR ---
Discharge Packet Reviewed discharge packet with patient, reviewed appointment and prescription information with patient; patient requested that I speak with her son, Fransico, patient notified that her son was already updated and aware of discharge plan. Patient verbalized understanding and is agreeable.
--- NOTE | 2020-03-01 15:19 | NUR ---
Discharge Discharge instructions given as ordered. Encourage to follow up with PMD as instructed. All questions and concerns addressed. Patient verbalized understanding. Medication reconciliation form completed and copy given to patient. Home medications held in Pharmacy returned to patient. IV removed with catheter intact, pressure dressing applied. Telemetry unit returned to ICU. Patient taken to vehicle via wheelchair with all personal belongings, accompanied by staff and family member. No distress noted at time of departure.
== END 2020-03-01 15:20 | disposition home or self-care (01) | DRG 391 ==
LOC: WEST WING 16:00 → TELE-WESTW 20:31
PROVIDERS: ADMIT Internal Medicine; ATTEND Internal Medicine
PROC: 0DB68ZX Excision of Stomach, Via Natural or Artificial Opening Endoscopic, Diagnostic (ICD-10-PCS; principal; 2020-02-28 12:34)
PROC: 0DBE8ZX Excision of Large Intestine, Via Natural or Artificial Opening Endoscopic, Diagnostic (ICD-10-PCS; 2020-02-28 12:34)
DX: K29.00 Acute gastritis without bleeding (principal); N17.0 Acute kidney failure with tubular necrosis; K57.32 Diverticulitis of large intestine without perforation or abscess without bleeding; E44.0 Moderate protein-calorie malnutrition; I13.0 Hypertensive heart and chronic kidney disease with heart failure and stage 1 through stage 4 chronic kidney disease, or unspecified chronic kidney disease; I50.32 Chronic diastolic (congestive) heart failure; D68.69 Other thrombophilia; I48.92 Unspecified atrial flutter; K52.9 Noninfective gastroenteritis and colitis, unspecified; E86.0 Dehydration; R62.7 Adult failure to thrive; N18.9 Chronic kidney disease, unspecified; E11.22 Type 2 diabetes mellitus with diabetic chronic kidney disease; I48.0 Paroxysmal atrial fibrillation; H40.9 Unspecified glaucoma; M25.512 Pain in left shoulder; M25.511 Pain in right shoulder; M19.90 Unspecified osteoarthritis, unspecified site; E78.5 Hyperlipidemia, unspecified; G89.29 Other chronic pain; M81.0 Age-related osteoporosis without current pathological fracture; Z79.82 Long term (current) use of aspirin; Z79.899 Other long term (current) drug therapy; Z80.0 Family history of malignant neoplasm of digestive organs; Z85.028 Personal history of other malignant neoplasm of stomach; Z83.3 Family history of diabetes mellitus; Z85.038 Personal history of other malignant neoplasm of large intestine; Z88.5 Allergy status to narcotic agent; Z88.8 Allergy status to other drugs, medicaments and biological substances; Z68.27 Body mass index [BMI] 27.0-27.9, adult
CPT/HCPCS: 36415; 71045; 71275; 73030; 74177; 80048; 80053; 80307; 81001; 82550; 82705; 82784; 82962; 83036; 83516; 83735; 84100; 84443; 85025; 85610; 85652; 86141; 86200; 86255; 86431; 87040; 87045; 87086; 87427; 93970; 97116; 97163; 97530; G0378; J1815; J2250; J3490

== ENCOUNTER → 2020-03-31 | Outpatient (CLI) | payer MEDICARE, OTHER ==
[~2020-03-31] VITALS: Ht 170.2 cm; Wt 62.6 kg
[~2020-03-31] MED LIST changes: +ADENOSINE 53 MG in GIVE UN-DILUTED 0 ML IV STA; +BIMA0.01 EACHEYE; +CHOL500040 PO; +CYAN1TAB14 PO; +FLUT50SP; -GABA300C10 PO; +GABA300C11 PO; +MAGN250T3 PO; +MULT-927 PO; +OMEP20TA PO; -PANT40TA2 PO; +POTA99TA3 PO; +SOTA80TA PO; +ZINC50TA7 PO; +[UNRECOGNIZED DRUG - CODE] PO; -[UNRECOGNIZED DRUG - CODE] SL
== END | disposition home or self-care (01) ==
LOC: XY 06:47
PROVIDERS: ATTEND Internal Medicine
DX: Z01.810 Encounter for preprocedural cardiovascular examination (principal)
CPT/HCPCS: 78452; 93017; A9500; J0153

== ENCOUNTER 2020-07-21 19:41 | Emergency (ER) | payer MEDICARE, OTHER ==
[~2020-07-21] VITALS: Ht 167.6 cm; Wt 58.5 kg
[~2020-07-21 19:41] MED LIST changes: -ADENOSINE 53 MG in GIVE UN-DILUTED 0 ML IV STA
[2020-07-21] MEDS ORDERED: MORPHINE SULFATE 4 MG/ML SYR/VIAL IV ONE (20:00)
[2020-07-21] MEDS ORDERED: ONDANSETRON HCL 4 MG/2 ML VIAL IV ONE (20:00)
[2020-07-21 20:52] LABS: Basophils # (auto) 0 10 ^3/uL (0-0.2); Basophils % (auto) 0.7 % (0.0-2.0); Eosinophils # (auto) 0.1 10 ^3/uL (0-0.8); Eosinophils % (auto) 1.7 % (0.0-7.0); Hematocrit 42.4 % (36.0-46.0); Hemoglobin 14.5 g/dL (12.2-16.2); Lymphocytes # (auto) 2.9 10 ^3/uL (0.4-5.4); Lymphocytes % (auto) 43.1 % (10.0-50.0); Mean Corpuscular Hemoglobin 32.5 pg (28.0-32.0); Mean Corpuscular Hgb Conc. 34.1 g/dL (32.0-36.0); Mean Corpuscular Volume 95.2 fL (80.0-100.0); Monocytes # (auto) 0.5 10 ^3/uL (0-1.3); Monocytes % (auto) 7.6 % (0.0-12.0); Neutrophils # (auto) 3.1 10 ^3/uL (1.6-8.6); Neutrophils % (auto) 46.9 % (37.0-80.0); Nucleated Red Blood Cells % 0.1 %; Platelet Count (auto) 255 10^3/uL (140-450); Red Blood Cells 4.46 10^6/uL (4.0-5.20); Red Cell Distribution Width 13.5 % (11.8-14.3); White Blood Cell 6.7 10^3/uL (4.4-10.8)
[2020-07-21 21:04] LABS: INR 0.98 (0.9-1.15)
[2020-07-21 21:10] LABS: Albumin 3.5 g/dL (3.4-5.0); BUN/Creatinine Ratio 23.6; Calcium 9.3 mg/dL (8.5-10.1); Potassium 3.9 mmol/L (3.5-5.1)
[2020-07-21 21:13] LABS: Bilirubin, Total 0.6 mg/dL (0.2-1.0); Total Protein 7.2 g/dL (6.4-8.2)
[2020-07-21 22:00] VITALS: BP 152/72
[2020-07-21 22:36] LABS: Urine Bacteria FEW /hpf (None Seen); Urine Blood Negative /uL (Negative); Urine Specific Gravity 1.005 (1.001-1.035); Urine WBC 18 /hpf (0 - 5)
[2020-07-21] MEDS ORDERED: cefTRIAXone 1GM/50ML D5W 50 ML IV ONE (22:45)
== END 2020-07-22 00:13 | disposition home or self-care (01) ==
LOC: ER 19:41
DX: R51.9 Headache, unspecified (principal); R11.2 Nausea with vomiting, unspecified; E11.9 Type 2 diabetes mellitus without complications; I10 Essential (primary) hypertension; Z90.49 Acquired absence of other specified parts of digestive tract
CPT/HCPCS: 36415; 70450; 80053; 81001; 85025; 85610; 93005; 96365; 96375; 99285; J0696; J2270; J2405

== ENCOUNTER 2020-07-27 17:24 | Inpatient (IN) | payer MEDICARE, OTHER ==
[~2020-07-27] VITALS: Ht 175.3 cm; Wt 71.2 kg
[2020-07-27] MEDS ORDERED: ACETAMINOPHEN 325 MG TAB PO ONE (18:00)
[2020-07-27 18:19] LABS: Basophils # (auto) 0 10 ^3/uL (0-0.2); Basophils % (auto) 0.4 % (0.0-2.0); Eosinophils # (auto) 0.1 10 ^3/uL (0-0.8); Eosinophils % (auto) 1.8 % (0.0-7.0); Hematocrit 44.3 % (36.0-46.0); Hemoglobin 14.8 g/dL (12.2-16.2); Lymphocytes # (auto) 2.4 10 ^3/uL (0.4-5.4); Lymphocytes % (auto) 34.1 % (10.0-50.0); Mean Corpuscular Hemoglobin 32.2 pg (28.0-32.0); Mean Corpuscular Hgb Conc. 33.3 g/dL (32.0-36.0); Mean Corpuscular Volume 96.6 fL (80.0-100.0); Monocytes # (auto) 0.5 10 ^3/uL (0-1.3); Monocytes % (auto) 6.7 % (0.0-12.0); Platelet Count (auto) 246 10^3/uL (140-450); Red Blood Cells 4.58 10^6/uL (4.0-5.20); Red Cell Distribution Width 13.9 % (11.8-14.3)
[2020-07-27 18:27] LABS: Albumin 3.8 g/dL (3.4-5.0); Anion Gap 4 (5-15); Blood Urea Nitrogen 21 mg/dL (7-18); Carbon Dioxide 28 mmol/L (21-32); Chloride 109 mmol/L (98-107); Glucose 116 mg/dL (74-106); Potassium 4.5 mmol/L (3.5-5.1); Sodium 141 mmol/L (136-145)
[2020-07-27 18:32] LABS: Alanine Aminotransferase 28 U/L (13-56); Alkaline Phosphatase 66 U/L (45-117); Aspartate Aminotransferase 30 U/L (15-37); BUN/Creatinine Ratio 23.6; Bilirubin, Total 0.4 mg/dL (0.2-1.0); GFR African American 77 mL/min; GFR Non-African American 63 mL/min; Total Protein 7.5 g/dL (6.4-8.2)
[2020-07-27 18:51] LABS: INR 0.93 (0.9-1.15)
[2020-07-27 18:53] LABS: Partial Thromboplastin Time < 20.0 sec (23.0-31.2)
[2020-07-27 21:32] LABS: Urine Bacteria NONE SEEN /hpf (None Seen); Urine Blood Negative /uL (Negative); Urine Specific Gravity 1.017 (1.001-1.035); Urine WBC 8 /hpf (0 - 5)
[2020-07-27 21:51] LABS: Amphetamine Screen, Urine NEGATIVE (NEGATIVE); Barbiturate Scree,Urine NEGATIVE (NEGATIVE); Benzodiazephine Screen, Urine NEGATIVE (NEGATIVE); Cannabinoid Screen, Urine NEGATIVE (NEGATIVE); Cocaine Screen, Urine NEGATIVE (NEGATIVE); Opiate Scree,Urine NEGATIVE (NEGATIVE); Phencyclidine Screen, Urine NEGATIVE (NEGATIVE)
[2020-07-27] MEDS ORDERED: ACETAMINOPHEN 325 MG TAB PO PRN (23:30)
[2020-07-27] MEDS ORDERED: MORPHINE SULF INJ 2 MG/ML SYRINGE 1ML IV PRN (23:30)
[2020-07-27] MEDS ORDERED: NITROGLYCERIN 0.4 MG SL TAB SL PRN (23:30)
[2020-07-27] MEDS ORDERED: DOCUSATE SOD 100 MG CAP PO PRN (23:30)
[2020-07-27] MEDS: SODIUM CHLORIDE 0.9% 1,000 ML IV SCH (23:30)
[2020-07-28] MEDS ORDERED: hydrALAZINE HCL 20 MG/ML VL IV PRN (00:15)
[2020-07-28 00:30] VITALS: BP 162/84
[2020-07-28] MEDS: HYDROcodone-ACET 5/325MG TAB PO PRN ×3 (01:08→13:51)
[2020-07-28] MEDS ORDERED: LOP2C PO (02:03)
[2020-07-28] MEDS: hydrALAZINE HCL 20 MG/ML VL IV PRN ×2 (02:15→08:54)
[2020-07-28] MEDS: SODIUM CHLORIDE 0.9% 1,000 ML IV SCH (02:33)
[2020-07-28 05:00] VITALS: BP 127/57
[2020-07-28 05:46] LABS: Basophils # (auto) 0 10 ^3/uL (0-0.2); Basophils % (auto) 0.4 % (0.0-2.0); Eosinophils # (auto) 0.2 10 ^3/uL (0-0.8); Eosinophils % (auto) 3.1 % (0.0-7.0); Hematocrit 41.6 % (36.0-46.0); Lymphocytes # (auto) 2.3 10 ^3/uL (0.4-5.4); Lymphocytes % (auto) 37.1 % (10.0-50.0); Mean Corpuscular Hemoglobin 32.1 pg (28.0-32.0); Mean Corpuscular Hgb Conc. 33.7 g/dL (32.0-36.0); Mean Corpuscular Volume 95.4 fL (80.0-100.0); Monocytes # (auto) 0.5 10 ^3/uL (0-1.3); Monocytes % (auto) 8.1 % (0.0-12.0); Neutrophils # (auto) 3.1 10 ^3/uL (1.6-8.6); Neutrophils % (auto) 51.3 % (37.0-80.0); Nucleated Red Blood Cells % 0.1 %; Platelet Count (auto) 222 10^3/uL (140-450); Red Blood Cells 4.36 10^6/uL (4.0-5.20); Red Cell Distribution Width 13.7 % (11.8-14.3); White Blood Cell 6.1 10^3/uL (4.4-10.8)
[2020-07-28 06:06] LABS: Albumin 3.2 g/dL (3.4-5.0); Potassium 3.5 mmol/L (3.5-5.1)
[2020-07-28 06:12] LABS: Bilirubin, Total 0.5 mg/dL (0.2-1.0); Total Protein 6.4 g/dL (6.4-8.2)
[2020-07-28] MEDS: MULTIPLE VITAMIN TAB PO SCH (08:51)
[2020-07-28] MEDS: ZINC SULFATE 220mg CAP or TAB PO SCH (08:51)
[2020-07-28] MEDS: FAMOTIDINE 20 MG TAB PO SCH ×2 (08:52→21:52)
[2020-07-28] MEDS: ASCORBIC ACID 500 MG TAB PO SCH ×2 (08:53→21:52)
[2020-07-28] MEDS: ENOXAPARIN SOD 30 MG/0.3 ML SYRINGE SC SCH (08:54)
[2020-07-28 09:21] VITALS: BP 141/71
[2020-07-28] MEDS: ONDANSETRON HCL 4 MG/2 ML VIAL IV PRN ×2 (09:50→13:49)
[2020-07-28 13:30] VITALS: BP 131/72
[2020-07-28 16:30] VITALS: BP 133/60
[2020-07-28 22:00] VITALS: BP 117/56
[2020-07-29 05:00] VITALS: BP 115/59
[2020-07-29 08:00] VITALS: BP 115/59
[2020-07-29 09:00] VITALS: BP 133/72
[2020-07-29] MEDS: ZINC SULFATE 220mg CAP or TAB PO SCH (10:00)
[2020-07-29] MEDS: ENOXAPARIN SOD 30 MG/0.3 ML SYRINGE SC SCH (11:26)
[2020-07-29] MEDS: MULTIPLE VITAMIN TAB PO SCH (11:26)
[2020-07-29] MEDS: DexAMETHasone INJECTION 10 MG in D5W 5% 50 ML IV SCH (11:26)
[2020-07-29] MEDS: ASCORBIC ACID 500 MG TAB PO SCH ×2 (11:26→21:25)
[2020-07-29] MEDS: FAMOTIDINE 20 MG TAB PO SCH ×2 (11:26→21:25)
[2020-07-29 13:00] VITALS: BP 123/54
[2020-07-29 17:10] VITALS: BP 141/76
[2020-07-29] MEDS ORDERED: dilTIAZem 25 MG/5 ML VIAL IV ONE (18:30)
[2020-07-29] MEDS: SOTALOL HCL 80 MG TAB PO SCH (21:24)
[2020-07-29] MEDS: HYDROcodone-ACET 5/325MG TAB PO PRN (21:25)
[2020-07-29 22:00] VITALS: BP_SYST 114; BP_SYST 137; BP_DIAS 62
[2020-07-30 05:00] VITALS: BP 125/70
[2020-07-30 09:00] VITALS: BP 127/74
[2020-07-30] MEDS: ZINC SULFATE 220mg CAP or TAB PO SCH ×2 (10:00→10:50)
[2020-07-30] MEDS: DexAMETHasone INJECTION 10 MG in D5W 5% 50 ML IV SCH (10:00)
[2020-07-30] MEDS: SOTALOL HCL 80 MG TAB PO SCH ×2 (10:50→22:01)
[2020-07-30] MEDS: MULTIPLE VITAMIN TAB PO SCH (10:50)
[2020-07-30] MEDS: ENOXAPARIN SOD 30 MG/0.3 ML SYRINGE SC SCH (10:51)
[2020-07-30] MEDS: FAMOTIDINE 20 MG TAB PO SCH ×2 (10:51→22:01)
[2020-07-30] MEDS: ASCORBIC ACID 500 MG TAB PO SCH ×2 (10:51→22:02)
[2020-07-30 13:00] VITALS: BP 120/62
[2020-07-30 17:00] VITALS: BP 137/73
[2020-07-30] MEDS ORDERED: cefTRIAXone 1GM/50ML D5W 50 ML IV SCH (20:00)
[2020-07-30 22:00] VITALS: BP 126/70
[2020-07-31 05:00] VITALS: BP 145/65
[2020-07-31 09:00] VITALS: BP 136/84
[2020-07-31] MEDS: ASCORBIC ACID 500 MG TAB PO SCH (10:00)
[2020-07-31] MEDS: FAMOTIDINE 20 MG TAB PO SCH (10:16)
[2020-07-31] MEDS: MULTIPLE VITAMIN TAB PO SCH (10:16)
[2020-07-31] MEDS: ZINC SULFATE 220mg CAP or TAB PO SCH (10:17)
[2020-07-31] MEDS: SOTALOL HCL 80 MG TAB PO SCH (10:17)
[2020-07-31] MEDS: ENOXAPARIN SOD 30 MG/0.3 ML SYRINGE SC SCH (10:18)
[2020-07-31] MEDS: DexAMETHasone INJECTION 10 MG in D5W 5% 50 ML IV SCH (10:22)
[2020-07-31 13:00] VITALS: BP 143/73
[2020-07-31 16:46] VITALS: BP 146/83
== END 2020-07-31 18:35 | disposition home health service (06) | DRG 103 ==
LOC: ER 17:28 → TELE-WESTW 17:29
PROVIDERS: ADMIT Nurse Practitioner Family; ATTEND Internal Medicine
DX: R51.9 Headache, unspecified (principal); N39.0 Urinary tract infection, site not specified; I10 Essential (primary) hypertension; I48.91 Unspecified atrial fibrillation; G89.29 Other chronic pain; Z66 Do not resuscitate; F32.9 Major depressive disorder, single episode, unspecified; E11.42 Type 2 diabetes mellitus with diabetic polyneuropathy; Z80.0 Family history of malignant neoplasm of digestive organs; Z82.49 Family history of ischemic heart disease and other diseases of the circulatory system; Z90.49 Acquired absence of other specified parts of digestive tract; Z83.3 Family history of diabetes mellitus; Z85.038 Personal history of other malignant neoplasm of large intestine; Z88.5 Allergy status to narcotic agent; Z88.8 Allergy status to other drugs, medicaments and biological substances; H53.9 Unspecified visual disturbance; S49.92XA Unspecified injury of left shoulder and upper arm, initial encounter; S49.91XA Unspecified injury of right shoulder and upper arm, initial encounter
CPT/HCPCS: 36415; 70450; 70551; 71045; 80053; 80307; 81001; 83036; 83735; 84484; 85025; 85610; 85652; 85730; 86141; 87081; 93005; 97163; G0378; J0696; J1100; J2405; J7060

== ENCOUNTER → 2020-11-28 | Outpatient (CLI) | payer MEDICARE, OTHER ==
[~2020-11-28] MED LIST changes: -ASPI-231 PO; -BACL20TA PO; -HYDR500T13 PO; +LOP2C PO; -METO-159 PO; -[UNRECOGNIZED DRUG - CODE] PO
[2020-11-28 14:35] LABS: Basophils # (auto) 0 10 ^3/uL (0-0.2); Basophils % (auto) 0.5 % (0.0-2.0); Eosinophils # (auto) 0.1 10 ^3/uL (0-0.8); Eosinophils % (auto) 1.8 % (0.0-7.0); Hematocrit 42.8 % (36.0-46.0); Hemoglobin 14.6 g/dL (12.2-16.2); Lymphocytes # (auto) 2.2 10 ^3/uL (0.4-5.4); Lymphocytes % (auto) 35.6 % (10.0-50.0); Mean Corpuscular Hemoglobin 31.8 pg (28.0-32.0); Mean Corpuscular Hgb Conc. 34.1 g/dL (32.0-36.0); Mean Corpuscular Volume 93.2 fL (80.0-100.0); Monocytes # (auto) 0.4 10 ^3/uL (0-1.3); Monocytes % (auto) 6.3 % (0.0-12.0); Neutrophils # (auto) 3.4 10 ^3/uL (1.6-8.6); Neutrophils % (auto) 55.8 % (37.0-80.0); Nucleated Red Blood Cells % 0.1 %; Platelet Count (auto) 246 10^3/uL (140-450); Red Blood Cells 4.59 10^6/uL (4.0-5.20); Red Cell Distribution Width 13.8 % (11.8-14.3); White Blood Cell 6.1 10^3/uL (4.4-10.8)
[2020-11-28 15:20] LABS: Potassium 4.5 mmol/L (3.5-5.1)
[2020-11-28 15:23] LABS: Albumin 3.7 g/dL (3.4-5.0); BUN/Creatinine Ratio 22.9; Calcium 8.7 mg/dL (8.5-10.1)
[2020-11-28 15:30] LABS: Bilirubin, Total 0.8 mg/dL (0.2-1.0); Total Protein 7.5 g/dL (6.4-8.2)
== END | disposition home or self-care (01) ==
LOC: LAB 14:15
PROVIDERS: ATTEND Internal Medicine
DX: E11.22 Type 2 diabetes mellitus with diabetic chronic kidney disease (principal); N18.9 Chronic kidney disease, unspecified; E83.9 Disorder of mineral metabolism, unspecified; Z79.82 Long term (current) use of aspirin
CPT/HCPCS: 36415; 80053; 80061; 82306; 83036; 84439; 84443; 85025